=== PATIENT | female | born 1975 | race Caucasian/White ===

== ENCOUNTER → 2016-09-21 | Outpatient (CLI) | payer OTHER ==
--- NOTE | 2016-09-21 11:38 | REPMRS ---
Patient History The patient states she had a clinical breast exam in August 2016.Patient is nulliparous. Family history of breast cancer in mother at age 47. Took hormonal contraceptives for 6 years. Digital Mammo Screening Bilat: September 21, 2016 - Exam #: [id number] Bilateral CC and MLO view(s) were taken. Technologist: Merly Rosales, Technologist Prior study comparison: September 20, 2015, digital mammo diagnostic bilateral performed at [facility]. September 28, 2014, right breast digital mammo diagnostic unilateral performed at [facility]. FINDINGS: There are scattered fibroglandular densities. There has been no change in the appearance of the mammogram from the prior studies. There is a mild amount of residual fibroglandular tissue which is fairly symmetric. There is no interval development of dominant mass, architectural distortion, or clustered microcalcification suggestive of malignancy. ASSESSMENT: BI-RADS/ACR category 1 mammogram. Negative. Recommendation Routine screening mammogram in 1 year (for women over age 40). This mammogram was interpreted with the aid of an FDA-approved computer-aided dectection system. Electronically Signed By: Russ Molina MD 09/21/16 [id number]
== END ==
LOC: M RAD 08:48
PROVIDERS: ATTEND Obstetrics & Gynecology
DX: Z12.31 Encounter for screening mammogram for malignant neoplasm of breast (principal); Z80.3 Family history of malignant neoplasm of breast; Z92.0 Personal history of contraception

== ENCOUNTER → 2017-10-08 | Outpatient (CLI) | payer OTHER | LOC: M RAD 09:56 | DX: Z12.31 Encounter for screening mammogram for malignant neoplasm of breast (principal) | CPT/HCPCS: 77067 ==

== ENCOUNTER → 2018-10-10 | Outpatient (CLI) | payer OTHER ==
--- NOTE | 2018-10-10 12:41 | REPMRS ---
Patient History The patient states she had a clinical breast exam in August 2018. Family history of breast cancer at age 47 in mother. Took hormonal contraceptives for 6 years. 3D TOMOSYNTHESIS WAS PERFORMED. Digital Mammo Screening Bilat: October 10, 2018 - Exam #: [id number] Bilateral CC and MLO view(s) were taken. Technologist: Sharee Willams, Technologist Prior study comparison: October 08, 2017, bilateral digital mammo screening bilat performed at [facility]. September 21, 2016, bilateral digital mammo screening bilat performed at [facility]. FINDINGS: There are scattered fibroglandular densities. There has been no change in the appearance of the mammogram from the prior studies. There is a mild amount of residual fibroglandular tissue which is fairly symmetric. There is no interval development of dominant mass, architectural distortion, or clustered microcalcification suggestive of malignancy. Assessment: BI-RADS/ACR category 1 mammogram. Negative Mammogram. Recommendation Routine screening mammogram in 1 year (for women over age 40). This mammogram was interpreted with the aid of an FDA-approved computer-aided dectection system. THE LIFETIME RISK OF BREAST CANCER IS 27.8%, THEREFORE SUPPLEMENTAL SCREENING MRI OF THE BREASTS IS RECOMMENDED IN 6 MONTHS. Electronically Signed By: Russ Molina MD 10/10/18 [id number]
== END ==
LOC: M RAD 09:33
PROVIDERS: ATTEND Nurse Practitioner Women's Health
DX: Z12.31 Encounter for screening mammogram for malignant neoplasm of breast (principal); Z80.3 Family history of malignant neoplasm of breast; Z92.0 Personal history of contraception

== ENCOUNTER → 2020-08-04 | Outpatient (CLI) | payer OTHER ==
--- NOTE | 2020-08-04 09:19 | REP ---
INDICATION: PAIN AFTER FALL. COMPARISON: None. TECHNIQUE: Four views FINDINGS: There is a nondisplaced distal radial metaphyseal fracture without angulation or displacement. I cannot definitely confirm intra-articular extension. Distal ulna and ulnar styloid were unremarkable. The carpal bones and their joint spaces are intact. Metacarpals, MCP joints and visualized phalanges unremarkable. Prominent soft tissue swelling over the dorsal aspect of the wrist. IMPRESSION: 1. Distal radial metaphyseal fracture without definite intra-articular extension, angulation or displacement. Some soft tissue swelling. No other bony finding. <Electronically signed by Jai Hahn > 08/04/20 [id number]
== END ==
LOC: M WUC 09:03
PROVIDERS: ATTEND Physician Assistant
DX: S52.592A Other fractures of lower end of left radius, initial encounter for closed fracture (principal); W00.0XXA Fall on same level due to ice and snow, initial encounter; Y92.89 Other specified places as the place of occurrence of the external cause; Y93.89 Activity, other specified; Y99.8 Other external cause status

== ENCOUNTER → 2021-02-04 | Outpatient (CLI) | payer OTHER ==
--- NOTE | 2021-02-04 13:45 | REPMRS ---
Patient History The patient states she had a clinical breast exam in December 2020. Family history of breast cancer at age 47 in mother. Took hormonal contraceptives for 6 years. No breast complaints today Patient signed the MRS sheet 1st covid vaccine 09/15/20-left arm-Moderna 2nd covid vaccine 10/26/20-left arm Priors on PACS Patient Identification Verified Patient denied Digital Woman Screen Mammo: February 04, 2021 - Exam #: [id number] Bilateral CC and MLO view(s) were taken. Technologist: Merly Rosales, Technologist Prior study comparison: October 29, 2019, bilateral digital woman screen mammo performed at [facility] and [facility] [place]. October 10, 2018, bilateral digital mammo screening bilat, performed at [facility]. October 08, 2017, bilateral digital mammo screening bilat, performed at [facility]. FINDINGS: There are scattered fibroglandular densities. The Volpara volumetric breast density category is:B. There has been no change in the appearance of the mammogram from the prior studies. There is a mild amount of scattered fibroglandular density which is fairly symmetric. There is no interval development of dominant mass, architectural distortion, or grouped microcalcification suggestive of malignancy. 3-D tomosynthesis shows no additional findings. Assessment: BI-RADS/ACR category 1 mammogram. Negative Mammogram. Recommendation Breast MRI of both breasts in 6 months. Routine screening mammogram of both breasts in 1 year (for women over age 40). This patient's [facility] Lifetime Breast Cancer Risk is estimated at 26.9 %. Patients whose estimated lifetime breast cancer risk assessment is greater than 20% merit annual screening breast MRI scanning in addition to annual mammography. This mammogram was interpreted with the aid of an FDA-approved computer-aided dectection system. Electronically Signed By: Josh Holland MD 02/04/21 [id number]
== END ==
LOC: M WHC 12:54
PROVIDERS: ATTEND Obstetrics & Gynecology
DX: Z12.31 Encounter for screening mammogram for malignant neoplasm of breast (principal)